=== PATIENT | female | born 1985 | race Caucasian/White ===

== ENCOUNTER 2018-02-09 06:10 | Day surgery (SDC) | payer OTHER ==
[~2018-02-09] VITALS: Ht 154.9 cm; Wt 53.5 kg
[2018-02-09] MEDS ORDERED: PRILOSEC OTC20 MG (06:22)
[2018-02-09] MEDS ORDERED: SYNTHROID50 MCG (06:22)
[2018-02-09] MEDS ORDERED: DOXYCYCLINE HY100 MG PO (11:09)
== END 2018-02-09 13:30 | disposition home or self-care (01) ==
LOC: ER 06:10 → CIR.AMB 08:35
DX: O02.1 Missed abortion (principal); Z3A.20 20 weeks gestation of pregnancy

== ENCOUNTER 2018-08-11 13:33 | Outpatient (CLI) | payer OTHER ==
[~2018-08-11 13:33] MED LIST: DOXYCYCLINE HY100 MG PO; PRILOSEC OTC20 MG; SYNTHROID50 MCG
[2018-08-11] MEDS ORDERED: PRENATAL TABLE1 EAC4 PO (14:18)
== END 2018-08-11 17:17 | disposition home or self-care (01) ==
LOC: OBS/DEL 13:33
DX: O46.8X2 Other antepartum hemorrhage, second trimester (principal); Z34.82 Encounter for supervision of other normal pregnancy, second trimester

== ENCOUNTER 2018-10-01 07:13 | Inpatient (IN) | payer OTHER ==
[~2018-10-01 07:13] MED LIST changes: +PRENATAL TABLE1 EAC4 PO
[2018-10-02] MEDS ORDERED: NIFEDIPINE20 MG PO (15:30)
[2018-10-02] MEDS ORDERED: KEFLEX500 MG PO (15:34)
== END 2018-10-02 15:53 | disposition home or self-care (01) | DRG 833 ==
LOC: OB/GYN 07:13 → LDR 07:13 → OB/GYN 15:56
PROVIDERS: ADMIT Obstetrics & Gynecology
PROC: 4A1HXCZ Monitoring of Products of Conception, Cardiac Rate, External Approach (ICD-10-PCS; principal; 2018-10-01)
DX: O47.03 False labor before 37 completed weeks of gestation, third trimester (principal); Z34.83 Encounter for supervision of other normal pregnancy, third trimester; O60.03 Preterm labor without delivery, third trimester

== ENCOUNTER 2018-12-06 10:30 | Inpatient (IN) | payer OTHER ==
[~2018-12-06] VITALS: Ht 154.9 cm; Wt 66.7 kg
[~2018-12-06 10:30] MED LIST changes: +KEFLEX500 MG PO; +NIFEDIPINE20 MG PO
[2018-12-12] MEDS ORDERED: SYNTHROID75 MCG PO (09:33)
[2018-12-12] MEDS ORDERED: OMEPRAZOLE20 M1 PO (09:34)
== END 2018-12-14 11:59 | disposition home or self-care (01) | DRG 807 ==
LOC: EDSTATUS 10:30 → ADM 10:30 → LDR 12-12 08:14 → OB/GYN 12-12 21:40
PROVIDERS: ADMIT Obstetrics & Gynecology
PROC: 10E0XZZ Delivery of Products of Conception, External Approach (ICD-10-PCS; principal; 2018-12-12)
PROC: 0KQM0ZZ Repair Perineum Muscle, Open Approach (ICD-10-PCS; 2018-12-12)
PROC: 4A1HXCZ Monitoring of Products of Conception, Cardiac Rate, External Approach (ICD-10-PCS; 2018-12-12)
PROC: 3E033VJ Introduction of Other Hormone into Peripheral Vein, Percutaneous Approach (ICD-10-PCS; 2018-12-12)
DX: O70.1 Second degree perineal laceration during delivery (principal); Z37.0 Single live birth; Z3A.39 39 weeks gestation of pregnancy

== ENCOUNTER 2019-11-25 13:00 | Day surgery (SDC) | payer OTHER ==
[~2019-11-25] VITALS: Ht 154.9 cm; Wt 54.9 kg
[~2019-11-25 13:00] MED LIST changes: +DROSPIRENONE-E1 EAC1 PO; +LEVO-T50 MCG PO; +OMEPRAZOLE20 M1 PO; +SYNTHROID75 MCG PO
== END 2019-11-26 13:20 | disposition home or self-care (01) ==
LOC: CIR.AMB 13:00 → SEC-K 13:11 → O/R 13:11 → ER 13:11 → EDSTATUS 15:00 → SEC-K 16:07 → O/R 16:07 → SURG-SUITE 18:19 → O/R 18:19 → CIR.AMB 11-26 13:20 → SURG-SUITE 11-26 13:20 → O/R 11-26 13:20 → SEC-K 11-26 13:20
PROVIDERS: ATTEND General Practice
DX: K80.10 Calculus of gallbladder with chronic cholecystitis without obstruction (principal)

== ENCOUNTER → 2020-08-03 | Outpatient (CLI) | payer OTHER | END | disposition home or self-care (01) | LOC: PRENATAL 10:00 | PROVIDERS: ATTEND Obstetrics & Gynecology Maternal & Fetal Medicine | DX: Z36.89 Encounter for other specified antenatal screening (principal); O36.80X1 Pregnancy with inconclusive fetal viability, fetus 1; O09.521 Supervision of elderly multigravida, first trimester; Z3A.12 12 weeks gestation of pregnancy ==

== ENCOUNTER → 2020-10-01 | Outpatient (CLI) | payer OTHER | END | disposition home or self-care (01) | LOC: PRENATAL 15:00 | PROVIDERS: ATTEND Obstetrics & Gynecology Maternal & Fetal Medicine | DX: O35.0XX1 Maternal care for (suspected) central nervous system malformation in fetus, fetus 1 (principal); O35.3XX1 Maternal care for (suspected) damage to fetus from viral disease in mother, fetus 1; O98.512 Other viral diseases complicating pregnancy, second trimester; O09.512 Supervision of elderly primigravida, second trimester; Z36.89 Encounter for other specified antenatal screening; Z3A.20 20 weeks gestation of pregnancy ==

== ENCOUNTER 2021-02-03 15:30 | Inpatient (IN) | payer OTHER ==
[~2021-02-03] VITALS: Ht 154.9 cm; Wt 61.2 kg
[2021-02-10] MEDS ORDERED: DICLEGIS DR 101 EACH (10:41)
== END 2021-02-12 13:14 | disposition home or self-care (01) | DRG 807 ==
LOC: LDR 02-09 23:32 → SURG-SUITE 02-09 23:32 → LDR 02-18 15:30
PROVIDERS: ADMIT Obstetrics & Gynecology; ATTEND Obstetrics & Gynecology
PROC: 10E0XZZ Delivery of Products of Conception, External Approach (ICD-10-PCS; principal; 2021-02-10)
PROC: 0KQM0ZZ Repair Perineum Muscle, Open Approach (ICD-10-PCS; 2021-02-10)
PROC: 4A1HXFZ Monitoring of Products of Conception, Cardiac Rhythm, External Approach (ICD-10-PCS; 2021-02-10)
PROC: 10907ZC Drainage of Amniotic Fluid, Therapeutic from Products of Conception, Via Natural or Artificial Opening (ICD-10-PCS; 2021-02-10)
DX: O70.1 Second degree perineal laceration during delivery (principal); Z37.0 Single live birth; Z3A.38 38 weeks gestation of pregnancy

== ENCOUNTER 2024-09-19 07:45 | Day surgery (SDC) | payer OTHER ==
[2024-09-16 12:06] LABS: COVID-19 AG NEGATIVE (NEGATIVE)
[2024-09-16 12:24] LABS: RH POSITIVE
[2024-09-16 12:45] VITALS: BP 116/77
[~2024-09-19] VITALS: Ht 154.9 cm; Wt 49.9 kg
[~2024-09-19 07:45] MED LIST changes: +DICLEGIS DR 101 EACH
[2024-09-19] MEDS ORDERED: METRONIDAZOLE/SODIUM CHLORIDE 500 MG/100 ML PIGGYBACK IV ONE (11:50)
[2024-09-19] MEDS ORDERED: CEFAZOLIN SODIUM 1,000 MG VIAL ONE (11:51)
[2024-09-19] MEDS ORDERED: POVIDONE-IODINE 118 ML BOTT TOP ONE (13:34)
[2024-09-19] MEDS ORDERED: LIDOCAINE HCL 1%/EPINEPHRINE 20ML VIAL IJ ONE (14:42)
[2024-09-19] MEDS ORDERED: VISTASEAL DUAL APPICATOR 1 EACH APPL TOP ONE (14:44)
[2024-09-19] MEDS ORDERED: THROMBIN,HU/FIBRINOGEN/CALCIUM 4 ML SYRINGE TOP ONE (14:44)
[2024-09-19] MEDS ORDERED: SUGAMMADEX SODIUM 200 MG/2 ML VIAL IV ONE (15:05)
[2024-09-19] MEDS ORDERED: MORPHINE SULFATE 4 MG/ML VIAL IV ONE (15:50)
== END 2024-09-19 18:30 | disposition home or self-care (01) ==
LOC: CIR.AMB 07:45
PROVIDERS: ATTEND Obstetrics & Gynecology Gynecologic Oncology
DX: D27.0 Benign neoplasm of right ovary (principal); N85.00 Endometrial hyperplasia, unspecified